=== PATIENT | male | born 1940 | race Caucasian/White ===

== ENCOUNTER → 2016-10-24 | Outpatient (CLI) | payer MEDICARE ==
[~2016-10-24] VITALS: Ht 172.7 cm; Wt 106.1 kg
[~2016-10-24] MED LIST: /WARF25TA; /WARF25TA OR; ACET65TA OR; ASPI81TA83 OR; ATOR40TA PO; CALC600T7 PO; CENTRUM SILVER PO; ETODOLAC PO; FISH1000; FLOM5CAP PO; GEMF600T OR; GLIP10TA PO; GLUC1000 OR; GLUC500T3; INSULANT SC; JANUVIA PO; KEFL500C OR; LEVO25TA5 PO; LIDOCAINE 2% INJ 100 MG/5 ML SDV (FOR ANES.) As Ordered ONE; LOPR50TA OR; METOPROLOL TART 50 MG TAB PO ONE; NS 1,000 ML IV SCH; OMEP20CA3 PO; OXYC10TA97 OR; PAXI40TA OR; PERC5TAB8 OR; PERC7.5T8 OR; PRED5TA PO; PROPOFOL 200 MG/20 ML VIAL As Ordered ONE; SIMV80TA OR; VENL150C43 PO; VITAMIN C; ZEST10TA OR; ZYTI250T PO
--- NOTE | 2016-10-24 12:10 | ROOR ---
Patient Name: Hieu Benson Procedure Date: 10/24/2016 11:59 AM Date of : 1940 Age: 76 Room: [facility] Gender: Male Note Status: Finalized Procedure: Upper GI endoscopy Indications: Epigastric abdominal pain Providers: Yoni Nelson Jr, MD Referring MD: NISHANT BARROSO JR, MD Requesting Provider: Medicines: Propofol per Anesthesia Complications: No immediate complications. Procedure: Pre-Anesthesia Assessment: - Prior to the procedure, a History and Physical was performed, and patient medications and allergies were reviewed. The patient is competent. The risks and benefits of the procedure and the sedation options and risks were discussed with the patient. All questions were answered and informed consent was obtained. Patient identification and proposed procedure were verified by the physician and the nurse in the pre-procedure area and in the procedure room. Mental Status Examination: alert and oriented. Airway Examination: normal oropharyngeal airway and neck mobility. Respiratory Examination: clear to auscultation. CV Examination: normal. ASA Grade Assessment: II - A patient with mild systemic disease. After reviewing the risks and benefits, the patient was deemed in satisfactory condition to undergo the procedure. The anesthesia plan was to use moderate sedation / analgesia (conscious sedation). Immediately prior to administration of medications, the patient was re-assessed for adequacy to receive sedatives. The heart rate, respiratory rate, oxygen saturations, blood pressure, adequacy of pulmonary ventilation, and response to care were monitored throughout the procedure. The physical status of the patient was re-assessed after the procedure. The Endoscope was introduced through the mouth, and advanced to the second part of duodenum. The upper GI endoscopy was accomplished without difficulty. The patient tolerated the procedure well. Findings: The upper third of the esophagus, middle third of the esophagus and lower third of the esophagus were normal. The cardia, gastric fundus, gastric body, gastric antrum and prepyloric region of the stomach were normal. The duodenal bulb, first portion of the duodenum and second portion of the duodenum were normal. Impression: - Normal upper third of esophagus, middle third of esophagus and lower third of esophagus. - Normal cardia, gastric fundus, gastric body, antrum and prepyloric region of the stomach. - Normal duodenal bulb, first portion of the duodenum and second portion of the duodenum. - No specimens collected. Recommendation: - Discharge patient to home (ambulatory). - Return to my office in 2 weeks. Yoni Nelson MD Yoni Nelson Jr, MD 10/24/2016 12:10:15 PM This report has been signed electronically. Number of Addenda: 0 Note Initiated On: 10/24/2016 11:59 AM Estimated Blood Loss: Estimated blood loss: none.
--- NOTE | 2016-10-24 12:33 | ROOR ---
Patient Name: Hieu Benson Procedure Date: 10/24/2016 12:00 PM Date of : 1940 Age: 76 Room: [facility] Gender: Male Note Status: Finalized Procedure: Colonoscopy Indications: Rectal bleeding Providers: Yoni Nelson Jr, MD Referring MD: NISHANT BARROSO JR, MD Requesting Provider: Medicines: Propofol per Anesthesia Complications: No immediate complications. Procedure: Pre-Anesthesia Assessment: - Prior to the procedure, a History and Physical was performed, and patient medications and allergies were reviewed. The patient is competent. The risks and benefits of the procedure and the sedation options and risks were discussed with the patient. All questions were answered and informed consent was obtained. Patient identification and proposed procedure were verified by the physician and the nurse in the pre-procedure area and in the procedure room. Mental Status Examination: alert and oriented. Airway Examination: normal oropharyngeal airway and neck mobility. Respiratory Examination: clear to auscultation. CV Examination: normal. ASA Grade Assessment: II - A patient with mild systemic disease. After reviewing the risks and benefits, the patient was deemed in satisfactory condition to undergo the procedure. The anesthesia plan was to use moderate sedation / analgesia (conscious sedation). Immediately prior to administration of medications, the patient was re-assessed for adequacy to receive sedatives. The heart rate, respiratory rate, oxygen saturations, blood pressure, adequacy of pulmonary ventilation, and response to care were monitored throughout the procedure. The physical status of the patient was re-assessed after the procedure. The Colonoscope was introduced through the anus and advanced to the ileocecal valve. The patient tolerated the procedure well. The quality of the bowel preparation was adequate and good. Findings: The perianal exam findings include non-thrombosed internal hemorrhoids and internal hemorrhoids that prolapse with straining, but spontaneously regress to the resting position (Grade II). A localized area of moderately altered vascular, congested and erythematous mucosa was found in the distal rectum. Four polyps were found in the sigmoid colon, ascending colon and cecum. The polyps were small in size. These polyps were removed with a hot snare. Resection and retrieval were complete. To prevent bleeding after the polypectomy, one hemostatic clip was successfully placed. There was no bleeding at the end of the procedure. Multiple small and large-mouthed diverticula were found in the sigmoid colon. The proximal rectum, mid rectum, recto-sigmoid colon, descending colon and transverse colon appeared normal. Impression: - Non-thrombosed internal hemorrhoids and internal hemorrhoids that prolapse with straining, but spontaneously regress to the resting position (Grade II) found on perianal exam. - Altered vascular, congested and erythematous mucosa in the distal rectum. - Four small polyps in the sigmoid colon, in the ascending colon and in the cecum, removed with a hot snare. Resected and retrieved. Clip was placed. - Diverticulosis in the sigmoid colon. - The proximal rectum, mid rectum, recto-sigmoid colon, descending colon and transverse colon are normal. 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 Recommendation: - Discharge patient to home (ambulatory). - Repeat colonoscopy in 3 - 5 years for surveillance based on pathology results. Yoni Nelson MD Yoni Nelson Jr, MD 10/24/2016 12:33:21 PM This report has been signed electronically. Number of Addenda: 0 Note Initiated On: 10/24/2016 12:00 PM Estimated Blood Loss: Estimated blood loss: none.
[2016-10-24 12:55] VITALS: BP 129/69
== END | disposition home or self-care (01) ==
LOC: M OPP 11:02
PROVIDERS: ATTEND Surgery
DX: K62.5 Hemorrhage of anus and rectum (principal); K64.8 Other hemorrhoids; K64.1 Second degree hemorrhoids; D12.5 Benign neoplasm of sigmoid colon; D12.2 Benign neoplasm of ascending colon; D12.0 Benign neoplasm of cecum; K57.30 Diverticulosis of large intestine without perforation or abscess without bleeding; K62.89 Other specified diseases of anus and rectum; R10.13 Epigastric pain; I10 Essential (primary) hypertension; E78.00 Pure hypercholesterolemia, unspecified; E11.9 Type 2 diabetes mellitus without complications; E03.9 Hypothyroidism, unspecified; R06.83 Snoring; F33.9 Major depressive disorder, recurrent, unspecified; F41.9 Anxiety disorder, unspecified; G47.30 Sleep apnea, unspecified; E66.9 Obesity, unspecified; I25.2 Old myocardial infarction; Z95.5 Presence of coronary angioplasty implant and graft; Z97.4 Presence of external hearing-aid; Z79.899 Other long term (current) drug therapy; Z79.4 Long term (current) use of insulin; Z79.84 Long term (current) use of oral hypoglycemic drugs; Z79.52 Long term (current) use of systemic steroids; Z79.82 Long term (current) use of aspirin

== ENCOUNTER → 2016-11-06 | Outpatient (REF) | payer MEDICARE ==
[~2016-11-06] MED LIST changes: -LIDOCAINE 2% INJ 100 MG/5 ML SDV (FOR ANES.) As Ordered ONE; -METOPROLOL TART 50 MG TAB PO ONE; -NS 1,000 ML IV SCH; -PROPOFOL 200 MG/20 ML VIAL As Ordered ONE
== END ==
LOC: M LAB REF 13:00
PROVIDERS: ATTEND Internal Medicine Medical Oncology
DX: C61 Malignant neoplasm of prostate (principal); Z12.5 Encounter for screening for malignant neoplasm of prostate

== ENCOUNTER → 2017-02-06 | Outpatient (REF) | payer MEDICARE | LOC: M LAB REF 16:27 | PROVIDERS: ATTEND Internal Medicine Medical Oncology | DX: C61 Malignant neoplasm of prostate (principal) ==

== ENCOUNTER → 2017-04-15 | Outpatient (REF) | payer MEDICARE ==
[~2017-04-15] MED LIST changes: +ASPI1TAB PO; -ATOR40TA PO; +ATOR40TA75 PO; +BACT800T5 PO; +CASO1TAB PO; +FISH100049 PO; +GLUC1CAP10 PO; +LEUP1INJ4; +LISI10TA4 PO; +METF10004 PO; +METO1TAB7 PO; +TYLE650T35 PO; +ZOME4INJ IV
[2017-04-15 15:45] LABS: PERCENT SATURATION 23.7 % (19.7-50.0)
== END ==
LOC: M LAB REF 13:27
PROVIDERS: ATTEND Internal Medicine
DX: D64.9 Anemia, unspecified (principal)

== ENCOUNTER → 2017-05-06 | Outpatient (REF) | payer MEDICARE ==
[2017-05-06 13:24] LABS: TOTAL PROTEIN 6.6 GM/DL (6.4-8.2)
[2017-05-06 13:25] LABS: VITAMIN B12 LEVEL 523 PG/ML
[2017-05-06 13:26] LABS: FOLATE 20.4 NG/ML
[2017-05-07 12:28] LABS: ALBUMIN 3.04 GM/DL (3.29-5.55); GAMMA GLOBULIN % 17.7 % (11.1-18.8)
== END ==
LOC: M LAB REF 09:03
PROVIDERS: ATTEND Internal Medicine
DX: D64.9 Anemia, unspecified (principal); R77.0 Abnormality of albumin

== ENCOUNTER → 2017-05-19 | Outpatient (CLI) | payer MEDICARE ==
--- NOTE | 2017-05-19 09:45 | REP ---
CHEST X-RAY: Three views. HISTORY: Phimosis. COMPARISON CHEST X-RAY: November 22, 2011. FINDINGS: The lungs are symmetrically aerated and free of infiltrate. Pleural angles are sharp. The heart is at the upper range of normal in size. Pulmonary vasculature is not increased. There are degenerative changes in the thoracic spine along with a mild dextroconvex curvature. Osteoarthritic changes are seen at the shoulders, fairly advanced in the glenohumeral articulations. There is a collection of calcifications inferior to the coracoid process of the left scapula. These may be intra-articular loose bodies. IMPRESSION: No active cardiopulmonary disease. Advanced arthritis of the shoulders. Question loose bodies on the left. Signed by Jose Manuel Carpio MD 05/19/2017 03:50 P
[2017-05-19 13:34] LABS: MEAN CORPUSCULAR HEMOGLOBIN 28.8 pg (27.0-33.0); MEAN CORPUSCULAR HGB CONC 31.3 g/dl (32.0-36.5); MEAN CORPUSCULAR VOLUME 92.1 fl (80.0-96.0); WHITE BLOOD COUNT 8.3 K/mm3 (4.0-10.0)
[2017-05-19 13:38] LABS: INR 1.01
[2017-05-19 14:04] LABS: CREATININE FOR GFR 1.33 MG/DL (0.70-1.30); GLOMERULAR FILTRATION RATE 55.8 (>42); POTASSIUM SERUM 5.1 MEQ/L (3.5-5.1)
== END ==
LOC: M SMT 09:05
PROVIDERS: ATTEND Nurse Practitioner Women's Health
DX: Z01.818 Encounter for other preprocedural examination (principal); N47.1 Phimosis; D64.9 Anemia, unspecified; R77.0 Abnormality of albumin; C61 Malignant neoplasm of prostate

== ENCOUNTER → 2017-05-20 | Outpatient (REF) | payer MEDICARE ==
[2017-05-20 13:09] LABS: RETIC HEMOGLOBIN CONTENT CHr 28.3 PG (24-36); RETICULOCYTE % 2.2 % (0.5-1.5)
[2017-05-20 13:49] LABS: PERCENT SATURATION 23.6 % (19.7-50.0)
== END ==
LOC: M LAB REF 09:59
PROVIDERS: ATTEND Internal Medicine Medical Oncology
DX: C61 Malignant neoplasm of prostate (principal)

== ENCOUNTER 2017-06-10 13:27 | Day surgery (SDC) | payer MEDICARE ==
[~2017-06-10] VITALS: Ht 172.7 cm; Wt 100.7 kg
[~2017-06-10 13:27] MED LIST changes: +BACITRACIN OINT 30GM As Ordered ONE; -BACT800T5 PO; +BUPIVACAINE HCL 0.25% 30 ML VIAL As Ordered ONE; -CASO1TAB PO; -GLUC1CAP10 PO; -LEUP1INJ4; +LIDOCAINE 1% SDV INJ 30 ML VIAL As Ordered ONE; -TYLE650T35 PO
[2017-06-10] MEDS ORDERED: LR 1,000 ML IV ONE (13:45)
[2017-06-10] MEDS ORDERED: GLUC1CAP10 PO (14:15)
[2017-06-10] MEDS ORDERED: CASO1TAB PO (14:33)
[2017-06-10] MEDS ORDERED: LEUP1INJ4 (14:33)
[2017-06-10] MEDS ORDERED: BACITRACIN OINT 30GM As Ordered ONE (15:08)
[2017-06-10] MEDS ORDERED: LIDOCAINE 1% SDV INJ 30 ML VIAL As Ordered ONE (15:08)
[2017-06-10] MEDS ORDERED: BUPIVACAINE HCL 0.25% 30 ML VIAL As Ordered ONE (15:08)
[2017-06-10] MEDS ORDERED: ASPIRIN 81 MG CHEW TABLET PO ONE (15:45)
[2017-06-10] MEDS ORDERED: fentaNYL 100 MCG/2 ML INJECTION (J3010) As Ordered ONE (16:22)
[2017-06-10] MEDS ORDERED: LIDOCAINE 2% INJ 100 MG/5 ML SDV (FOR ANES.) As Ordered ONE (16:22)
[2017-06-10] MEDS ORDERED: MIDAZOLAM INJ 2 MG/2 ML VIAL (J2250) As Ordered ONE (16:22)
[2017-06-10] MEDS ORDERED: PROPOFOL 200 MG/20 ML VIAL As Ordered ONE (16:22)
[2017-06-10] MEDS ORDERED: ONDANSETRON 4MG/2ML VIAL (J2405) As Ordered ONE (16:23)
[2017-06-10] MEDS ORDERED: TYLE650T35 PO (16:48)
[2017-06-10] MEDS ORDERED: BACT800T5 PO (16:48)
[2017-06-10] MEDS ORDERED: PERCOCET 5MG/325MG TAB PO PRN (18:00)
[2017-06-10] MEDS ORDERED: LR 1,000 ML IV SCH (18:00)
[2017-06-10] MEDS ORDERED: fentaNYL 100 MCG/2 ML INJECTION (J3010) IV PRN (18:00)
[2017-06-10] MEDS ORDERED: ONDANSETRON 4MG/2ML VIAL (J2405) IV PRN (18:00)
[2017-06-10 18:55] VITALS: BP 140/65
[2017-06-10] MEDS ORDERED: BACTRIM 160MG/800MG DS TAB PO SCH (21:00)
[2017-06-10] MEDS ORDERED: ACETAMINOPHEN 650MG ER TAB (TYLENOL ARTHRITIS) PO SCH (22:00)
--- NOTE | 2017-06-11 06:10 | RO ---
DATE OF PROCEDURE: 06/10/2017 PREPROCEDURE DIAGNOSIS: Phimosis. POSTPROCEDURE DIAGNOSIS: Phimosis. PROCEDURE: Circumcision. FINDINGS: Severe phimosis with severe desmoplastic reaction. SURGEON: Dr. Shay Angeles. WEB SITE ADMINISTRATOR: None. ANESTHESIA: General. COMPLICATIONS: None. ESTIMATED BLOOD LOSS: N/A. HISTORY OF PRESENT ILLNESS: 77-year-old male patient that cannot retract at all his foreskin. He has severe phimosis. For this reason, he has consented for a circumcision. PROCEDURE DESCRIPTION: With the patient under general anesthesia in supine position, after doing penile block also with lidocaine 1% and Marcaine 0.25%, a total of 10 mL around the base of the penis. We started by doing a doral slit at the level of the foreskin. With Metzenbaum scissors, we also dissected foreskin mucosa toward the sulcus of the glans completely out which was very desmoplastic attached to the glans. We then proceeded to actually also excise the ring of about 1 cm foreskin and then fulgurate all the bleeding vessels. After that, we put back together both the skin edges with Chromic #3-0 in separate stitches. We then proceeded to place bacitracin cream along the wound and then we proceeded to actually place a Kerlix roll and Coban. PLAN: The patient will go home with antibiotic and pain medication. He cannot have sexual intercourse for 1 month. He will followup at [facility] in about 3 days.
== END 2017-06-10 19:11 | disposition home or self-care (01) ==
LOC: M SDC 13:27
PROVIDERS: ATTEND Urology
DX: N47.1 Phimosis (principal); I10 Essential (primary) hypertension; C61 Malignant neoplasm of prostate; E88.81 Metabolic syndrome and other insulin resistance; E11.9 Type 2 diabetes mellitus without complications; I25.2 Old myocardial infarction; E78.00 Pure hypercholesterolemia, unspecified; E03.9 Hypothyroidism, unspecified; K44.9 Diaphragmatic hernia without obstruction or gangrene; K21.9 Gastro-esophageal reflux disease without esophagitis; M19.011 Primary osteoarthritis, right shoulder; M19.012 Primary osteoarthritis, left shoulder; F32.9 Major depressive disorder, single episode, unspecified; R06.83 Snoring; R06.02 Shortness of breath; Z79.899 Other long term (current) drug therapy; Z79.82 Long term (current) use of aspirin; Z79.84 Long term (current) use of oral hypoglycemic drugs; Z92.3 Personal history of irradiation; Z96.653 Presence of artificial knee joint, bilateral; Z95.5 Presence of coronary angioplasty implant and graft; Z92.21 Personal history of antineoplastic chemotherapy
CPT/HCPCS: 54161; 88304; J0690; J2250; J2405; J3010

== ENCOUNTER → 2017-08-19 | Outpatient (REF) | payer MEDICARE ==
[~2017-08-19] MED LIST changes: -BACITRACIN OINT 30GM As Ordered ONE; +BACT800T5 PO; -BUPIVACAINE HCL 0.25% 30 ML VIAL As Ordered ONE; +CASO1TAB PO; +GLUC1CAP10 PO; +LEUP1INJ4; -LIDOCAINE 1% SDV INJ 30 ML VIAL As Ordered ONE; +TYLE650T35 PO
== END ==
LOC: M LAB REF 13:45
PROVIDERS: ATTEND Internal Medicine Medical Oncology
DX: C61 Malignant neoplasm of prostate (principal)

== ENCOUNTER → 2017-11-04 | Outpatient (REF) | payer MEDICARE | LOC: M LAB REF 13:44 | DX: C61 Malignant neoplasm of prostate (principal) | CPT/HCPCS: 84153 ==

== ENCOUNTER 2018-08-07 23:09 | Emergency (ER) | payer MEDICARE ==
[2018-08-08] MEDS: NORCO, ANEXSIA 5/325MG TABLET (HYDROcodone/ACETAMINOPHEN) PO (01:09)
[2018-08-08] MEDS: MORPHINE 10 MG/ML 1ML VIAL (J2270) IM (02:53)
[2018-08-08] MEDS: methylPREDNISolone INJ 125 MG/2 ML VIAL (J2930) IM (03:45)
== END 2018-08-08 03:59 | disposition home or self-care (01) ==
LOC: M ED 23:09
DX: S50.01XA Contusion of right elbow, initial encounter (principal); W00.0XXA Fall on same level due to ice and snow, initial encounter; M13.821 Other specified arthritis, right elbow
CPT/HCPCS: J2930

== ENCOUNTER 2018-10-09 14:41 | Outpatient (CLI) | payer MEDICARE ==
[~2018-10-09 14:41] MED LIST changes: +ACETAMINOPHEN TAB 650MG DOSE (2X325MG) PO SCH; +diphenhydrAMINE 25 MG CAP PO SCH
== END 2018-10-09 21:20 | disposition home or self-care (01) ==
LOC: M OPCLI4PV 14:41 → M MSPAV 14:47 → M OPCLI4PV 21:20
PROVIDERS: ATTEND Internal Medicine
DX: D64.9 Anemia, unspecified (principal)
CPT/HCPCS: 36430; 86850; 86900; 86901; 86920; P9016

== ENCOUNTER → 2018-10-09 | Outpatient (REF) | payer MEDICARE ==
[~2018-10-09] MED LIST changes: -CASO1TAB PO; +CASO50TA5 PO; +FLOM0.4C39 PO; -FLOM5CAP PO; +OXYC15TA76 PO; +PRED20TA PO
== END ==
LOC: M LAB REF 11:53
PROVIDERS: ATTEND Internal Medicine
DX: D64.9 Anemia, unspecified (principal)

== ENCOUNTER 2018-11-11 12:39 | Outpatient (CLI) | payer MEDICARE ==
[~2018-11-11] VITALS: Ht 172.7 cm; Wt 98.5 kg
[2018-11-11] VITALS (8 sets, daily range): BP systolic 117–131; BP diastolic 56–86
[~2018-11-11 12:39] MED LIST changes: +ACETAMINOPHEN TAB 650MG DOSE (2X325MG) PO ONE; -ACID1CAP PO; -ASPI81TA85 PO; -DOCU100C16 PO; -KLOR20TA42 PO; -MIRA3350 PO; +diphenhydrAMINE 25 MG CAP PO ONE
[2018-11-11] MEDS ORDERED: DOCU100C16 PO (16:52)
[2018-11-11] MEDS ORDERED: KLOR20TA42 PO (16:55)
[2018-11-11] MEDS ORDERED: ACID1CAP PO (16:58)
[2018-11-11] MEDS ORDERED: ASPI81TA85 PO (16:58)
[2018-11-11] MEDS ORDERED: MIRA3350 PO (17:01)
== END 2018-11-11 18:00 | disposition home or self-care (01) ==
LOC: M INFU 12:39
PROVIDERS: ATTEND Internal Medicine
DX: D64.9 Anemia, unspecified (principal); R97.21 Rising PSA following treatment for malignant neoplasm of prostate
CPT/HCPCS: 36430; 86850; 86920; P9016

== ENCOUNTER → 2018-11-11 | Outpatient (REF) | payer MEDICARE ==
[~2018-11-11] MED LIST changes: -ACETAMINOPHEN TAB 650MG DOSE (2X325MG) PO SCH; +ACID1CAP PO; +ASPI81TA85 PO; +DOCU100C16 PO; +KLOR20TA42 PO; +MIRA3350 PO; -diphenhydrAMINE 25 MG CAP PO SCH
== END ==
LOC: M LAB REF 10:45
PROVIDERS: ATTEND Internal Medicine
DX: D64.9 Anemia, unspecified (principal); R97.21 Rising PSA following treatment for malignant neoplasm of prostate